=== PATIENT | female | born 1970 | race Two or more races ===

== ENCOUNTER → 2021-11-01 | Outpatient (CLI) | payer OTHER ==
--- NOTE | 2021-11-01 17:01 | KCIC ---
XR LUMBAR SPINE 2-3V History: Reason: LBP w/Lt radiculopathy for about 5 days. / Spl. Instructions: Hurts to bear wt. / Hi story: Technique: 3 views lumbar spine. Comparison: None. Findings: Grade 2 anterolisthesis L5 on S1. Normal vertebral body height. No acute fracture. Moderate degenerat joselyn disc changes of the thoracolumbar spine. DISH related changes of the thoracic spine. Surgical cli ps right upper quadrant. Impression: 1. Moderate thoracolumbar spondylosis. 2. Grade 2 anterolisthesis L5 on S1. Electronically signed by: Connor Candelaria DO (11/01/2021 4:58 PM) [id number]
== END ==
LOC: KCIC 08:59
PROVIDERS: ATTEND Family Medicine
DX: M47.815 Spondylosis without myelopathy or radiculopathy, thoracolumbar region (principal); M43.17 Spondylolisthesis, lumbosacral region; M48.14 Ankylosing hyperostosis [Forestier], thoracic region; Z98.890 Other specified postprocedural states
CPT/HCPCS: 72100